=== PATIENT | female | born 1975 | race Caucasian/White ===

== ENCOUNTER → 2017-07-27 | Outpatient (CLI) | payer OTHER ==
--- NOTE | 2017-07-28 14:44 | US ---
EXAM DESCRIPTION: Pelvis Transvaginal: Ultrasound. CLINICAL HISTORY: EXCESSIVE MENSTRUATION W/ REGULAR CYCLE. Pelvic pain. COMPARISON: None. TECHNIQUE: Transcutaneous scanning through the urine filled bladder. Endovaginal scanning. Two-dimensional and Doppler modes. Technically difficult study due to patient body habitus. FINDINGS: Uterus 5.6 x 5.2 x 4.1 cm. Endometrium not well seen. The myometrium appears heterogeneous. 2.8 x 2.4 x 1.6 cm hypoechoic mass which is submucosal. Second mass measures 2.1 x 2.0 x 1.7 cm and is also hypoechoic. There is a hypoechoic mass measures 1.9 x 1.6 x 1.5 cm. The uterus is not retroverted. Cervix unremarkable. Cul-de-sac contains no fluid. Right ovary 2.7 x 1.5 x 1.4 cm. Color Vascularity Doppler. No cysts. No adnexal mass or free fluid. Left ovary 2.7 x 2.6 x 1.5 cm. Color Vascularity Doppler. No cysts. No adnexal mass or free fluid. IMPRESSION: 1. Limited study due to patient body habitus. Endometrium not well seen. 3 fibroids in the uterus with largest fibroid submucosal. No fluid in the cul-de-sac. 2. Bilateral ovaries partially visualized. Normal vascularity. No adnexal mass or cyst. Electronically signed by: Carlos Eduardo Galindo MD 07/28/2017 2:43 PM [employer]
== END | disposition home or self-care (01) ==
LOC: LAB.O 09:13
PROVIDERS: ATTEND Nurse Practitioner Family
DX: N92.0 Excessive and frequent menstruation with regular cycle (principal)

== ENCOUNTER → 2017-07-27 | Outpatient (CLI) | payer SELFPAY | END | disposition home or self-care (01) | LOC: LAB.O 09:30 | PROVIDERS: ATTEND Nurse Practitioner Family | DX: N92.0 Excessive and frequent menstruation with regular cycle (principal) ==

== ENCOUNTER → 2017-11-30 | Outpatient (CLI) | payer BC ==
[~2017-11-30] MED LIST: SODIUM CHLORIDE 0.9% 500ML 500 ML IVS ONE; SODIUM CHLORIDE 0.9% 500ML 500 ML IVS SCH
[2017-11-30 22:19] VITALS: BP 137/83; TEMP 98.6; O2SAT 97
== END ==
LOC: TXRM 10:42
PROVIDERS: ATTEND Nurse Practitioner Family
DX: C53.9 Malignant neoplasm of cervix uteri, unspecified (principal); D63.0 Anemia in neoplastic disease
CPT/HCPCS: 36415; 86850; 86900; 86901; 86922; G0463; J7040; P9016

== ENCOUNTER → 2017-12-05 | Outpatient (CLI) | payer BC | LOC: LAB.O 10:12 | PROVIDERS: ATTEND Radiology Radiation Oncology | DX: C53.0 Malignant neoplasm of endocervix (principal) ==

== ENCOUNTER 2020-02-08 13:55 | Emergency (ER) | payer SELFPAY ==
[2020-02-08] MEDS ORDERED: ASPIRIN (CHEWABLE) 81 MG TAB PO ONE (14:08)
[2020-02-08] MEDS ORDERED: SODIUM CHLORIDE 0.9% (FLUSH) 10 ML SYG IV PRN (14:08)
--- NOTE | 2020-02-08 14:11 | ED.PDOC ---
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 She denies any fever or cough. She reports associated nausea, no vomiting, no diarrhea. She states she has been under increased situational stress over the last several days. She states her symptoms are similar to previous panic attacks. She does not take anything for panic disorder aside from BuSpar. She took that today, with no improvement. No recent leg swelling. She denies any history of DVT/PE. She denies any near-syncope/syncope. Her cervical cancer history is remote, she states she has not been on chemotherapy for more than 2 years. No recent hospitalizations, recent travel, or surgeries.Patient states she took her blood sugar when the symptoms were occurring, it was 78, so she took glucose tablets without improvement. She states she took her heart rate and heart rate at that time was 120, heart rate was 102 on EMS arrival, heart rate is 99 in the emergency department. Allergies/Adverse Reactions: Allergies NO KNOWN ALLERGY Allergy (Verified 07/20/12 13:16) Review of Systems - Review of Systems Constitutional: Denies: chills, fever EENTM: Denies: ear pain, nose congestion, mouth pain Respiratory: States: short of breath. Denies: cough, stridor, wheezing Cardiology: States: chest pain. Denies: edema, syncope, other Gastrointestinal/Abdominal: States: nausea. Denies: diarrhea, vomiting Genitourinary: Denies: dysuria, hematuria, pain Musculoskeletal: Denies: joint pain, muscle stiffness, neck pain Skin: Denies: change in hair/nails, rash Neurological: Denies: headache, paresthesia, weakness Endocrine: States: no symptoms reported Hematologic/Lymphatic: States: no symptoms reported. Denies: anemia, blood clots, easy bleeding Family Medical History - Family History Mother Living Status: Still Living Physical Exam - Physical Exam General Appearance: Alert, Anxious, No apparent distress, Other - Morbidly obese Eye Exam: bilateral normal Ears, Nose, Throat: hearing grossly normal, normal ENT inspection, normal pharynx Neck: non-tender, full range of motion, supple Respiratory: lungs clear, normal breath sounds, no respiratory distress, no accessory muscle use Cardiovascular/Chest: normal peripheral pulses, regular rate, rhythm, no edema, no gallop, no JVD Peripheral Pulses: radial,right: 2+, radial,left: 2+, dorsalis pedis,right: 2+, dorsalis pedis,left: 2+ Gastrointestinal/Abdominal: non tender, soft Back Exam: normal inspection, no vertebral tenderness Extremity: normal range of motion, non-tender 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 Symptoms resolved. Heart rate down to 82. O2 sats normal. No chest pain at this time. Discussed lab/chest x-ray findings. Long discussion with patient and her mother regarding likelihood of PE. At this time d-dimer reagent is an extreme shortage due to COVID pandemic. Her Wells score for PE is 1.5 based on EMS heart rate of 102. I explained that this carries a low risk for PE, approximately 1.3%. Patient and mother were in complete agreement with plan to defer CT chest after discussion of potential complications associated with CT, including contrast problems and radiation. Recommended patient follow- up with PCP next week for recheck. Strict warnings given to return the emergency room for worsening chest pain, shortness of breath, syncope, changes in mental status, leg swelling, or any other concerns. DDX: anxiety, acs, PE, pneumonia MDM: Chest pain, shortness of breath. Patient states symptoms are very similar to previous panic attacks, but states she has not had a panic attack in several years. She states she has been under increased situational stress. Troponin is negative, chest x-ray clear, labs reassuring aside from mild hypokalemia. This was repleted p.o. Well score for PE 1.5, low risk, PE risk 1.3%. This was discussed in detail with the patient and mother, who agreed with plan to defer imaging at this time due to severe d-dimer reagent shortage from COVID pandemic. I recommended she continue taking her BuSpar and follow-up with her primary doctor next week for recheck. Chest pain warnings given. Patient denies any SI/HI/hallucinations - Results/Orders Results/Orders: EKG reviewed personally by me at 1411. Normal sinus rhythm, rate of 91, normal axis, borderline QTC at 479, no ST segment elevations or depressions EXAM DESCRIPTION: Chest,1 View CLINICAL HISTORY: CP/SOB COMPARISON: None available FINDINGS: The cardiomediastinal silhouette is unremarkable. There is no airspace consolidation or pleural effusion. The bronchovascular markings are within normal limits, and the lungs are not hyperinflated. There is no pneumothorax or acute fracture. IMPRESSION: Negative exam. Electronically signed by: Miguel Jensen MD 02/08/2020 2:53 PM CDT Laboratory Tests 02/08/20 02/08/20 02/08/20 14:05 14:55 14:55 WBC 6.4 RBC 4.32 Hgb 13.2 Hct 39.5 MCV 91.4 MCH 30.5 MCHC 33.4 RDW 13.1 Plt Count 220 MPV 8.0 Absolute Neuts (auto) 5.10 Absolute Lymphs (auto) 0.90 L Absolute Monos (auto) 0.40 Absolute Eos (auto) 0.00 Absolute Basos (auto) 0.00 Neutrophils % 79.0 H Lymphocytes % 14.6 L Monocytes % 5.5 Eosinophils % 0.5 L Basophils % 0.4 Sodium 139 Potassium 3.2 L Chloride 107 Carbon Dioxide 22 Anion Gap 13.2 BUN 30 H Creatinine 1.24 BUN/Creatinine Ratio 24.2 H POC Glucose 111 H Random Glucose 95 Serum Osmolality 283.5 Calcium 8.8 Total Bilirubin 0.6 AST 22 ALT 19 Alkaline Phosphatase 81 Troponin I Serum Total Protein 6.9 Albumin 3.9 Globulin 3.0 Albumin/Globulin Ratio 1.3 02/08/20 14:55 WBC RBC Hgb Hct MCV MCH MCHC RDW Plt Count MPV Absolute Neuts (auto) Absolute Lymphs (auto) Absolute Monos (auto) Absolute Eos (auto) Absolute Basos (auto) Neutrophils % Lymphocytes % Monocytes % Eosinophils % Basophils % Sodium Potassium Chloride Carbon Dioxide Anion Gap BUN Creatinine BUN/Creatinine Ratio POC Glucose Random Glucose Serum Osmolality Calcium Total Bilirubin AST ALT Alkaline Phosphatase Troponin I 0.02 Serum Total Protein Albumin Globulin Albumin/Globulin Ratio Departure - Departure Clinical Impression: Acute dyspnea, Panic attack as reaction to stress, Hypokalemia Disposition: Discharge to Home or Self Care Condition: Good Departure Forms: ED Discharge - Pt. Copy, Patient Portal Self Enrollment Instructions: Panic Disorder (DC) Referrals: JOE LEDESMA IV, NP [Primary Care Provider] - 1-2 Weeks Additional Instructions: Return to the emergency room immediately for worsening shortness of breath, chest pain, leg swelling, syncope, fever, or any other concerns. Follow-up with your primary doctor next week for recheck.
--- NOTE | 2020-02-08 14:55 | RAD ---
EXAM DESCRIPTION: Chest,1 View CLINICAL HISTORY: CP/SOB COMPARISON: None available FINDINGS: The cardiomediastinal silhouette is unremarkable. There is no airspace consolidation or pleural effusion. The bronchovascular markings are within normal limits, and the lungs are not hyperinflated. There is no pneumothorax or acute fracture. IMPRESSION: Negative exam. Electronically signed by: Miguel Jensen MD 02/08/2020 2:53 PM CDT
[2020-02-08 14:59] VITALS: O2SAT 96
[2020-02-08] MEDS ORDERED: POTASSIUM CHLORIDE 20 MEQ TAB PO ONE (15:35)
[2020-02-08 16:01] VITALS: BP 147/83; TEMP 97.8
== END 2020-02-08 16:00 | disposition home or self-care (01) ==
LOC: ER 13:55
DX: F41.0 Panic disorder [episodic paroxysmal anxiety] (principal); R06.02 Shortness of breath; E87.6 Hypokalemia; R11.0 Nausea; Z85.41 Personal history of malignant neoplasm of cervix uteri; Z79.899 Other long term (current) drug therapy
CPT/HCPCS: 36415; 36416; 71045; 80053; 82948; 84484; 85025; 93005; A4216